=== PATIENT | female | born 1995 | race Caucasian/White ===

== ENCOUNTER 2024-08-29 15:41 | Emergency (ER) | payer OTHER ==
[2024-08-29 16:09] VITALS: BP 159/105; PULSE 105; RESP 24; TEMP 98; O2SAT 100
--- NOTE | 2024-08-29 16:44 | ERPHSYRPT ---
- History of Present Illness Source: patient Exam Limitations: no limitations Patient Subjective Stated Complaint: C/O intermittent "fluttering" in her chest for the past few weeks. Denies pain or SOB. Triage Nursing Assessment: Patient ambulated back to ER. She is alert and oriented. NO SOB. SKin tone normal. Physician History: Patient is having muscle twitches in her rightChest. Its up around her muscles in her pectoralis muscle. She says she feels a little flutter there it randomly occurs just last a few minutes. She does not have any palpitations or syncope or anything she was worried that it was heart. Its clearly coming from the musculature. I explained to her what was going on she does not have any cardiac history or anything. She does have a panic issue and she says whenever she feels this twitching and fasciculations she gets anxious. It is not cardiac. Timing/Duration: week(s) (2) Associated Symptoms: denies symptoms Allergies/Adverse Reactions: Penicillins Adverse Reaction (Verified 08/29/24 16:01) Hives Home Medications: Metformin HCl 750 mg PO BID 08/29/24 [History] Hx Tetanus, Diphtheria Vaccination/Date Given: Yes Hx Influenza Vaccination/Date Given: No Hx Pneumococcal Vaccination/Date Given: No Immunizations Up to Date: Yes Travel Risk - International Travel Have you traveled outside of the country in past 3 weeks: No - Emerging Infectious Disease Are you exhibiting symptoms associated with any current EIDs: No - Review of Systems Constitutional: No Symptoms Eyes: No Symptoms Ears, Nose, & Throat: No Symptoms Respiratory: No Symptoms Cardiac: No Symptoms Skin: No Symptoms All Other Systems: Reviewed and Negative - Past Medical History Pertinent Past Medical History: Yes Other Medical History: PCOS - Past Surgical History Past Surgical History: No - Female History Hx Last Menstrual Period: irregular; June Hx Now: No - Social History Smoking Status: Never smoker Exposure to second hand smoke: No Drug Use: none - Social Determinants of Health Will the patient participate in the screening: Declined to provide - Nursing Vital Signs Nursing Vital Signs: Initial Vital Signs Temperature 98 F 08/29/24 16:03 Pulse Rate 105 H 08/29/24 16:03 Respiratory Rate 24 08/29/24 16:03 Blood Pressure 159/105 08/29/24 16:03 O2 Sat by Pulse Oximetry 100 08/29/24 16:03 Pain Scale Pain Intensity 0 - Physical Exam General Appearance: no apparent distress Respiratory Exam: normal breath sounds, No chest tenderness Cardiovascular Exam: regular rate/rhythm SpO2: 100 - Course Nursing assessment & vital signs reviewed: Yes Ordered Tests: Active Orders 24 hr Category Date Time Status EKG-ER Only STAT Care 08/29/24 16:08 Active CHEST 1 VIEW (PORTABLE) Stat Exams 08/29/24 16:08 Taken BMP Stat Lab 08/29/24 16:30 Received MAG [MAGNESIUM] Stat Lab 08/29/24 16:30 Received - Progress Progress: unchanged Progress Note: Patient was stable throughout stay. She did not require workup. She is just having muscle twitches. It is nothing in her cardiovascular system. I wanted discharged her to home. 08/29/24 16:43 - Departure Departure Disposition: Home Clinical Impression: Muscle twitching Condition: Stable Critical Care Time: No Referrals: NILSON SOLANO TORTILLA MAKER [Primary Care Provider, UNKNOWN] - Follow up/PCP as directe d Additional Instructions: Return as needed Follow-up with primary care doctor as needed.
--- NOTE | 2024-08-29 16:51 | XRAY ---
Indication: Palpitations. Comparison: March 06, 2016 Portable chest again demonstrates normal heart, lungs, and bony thorax.
[2024-08-29 17:01] LABS: Calcium 9.8 mg/dL (8.4-10.2); Creatinine 1 0.97 mg/dL (0.52-1.04); EST GLOMERULAR FILTRATION RATE 82.1 ML/MIN; MAGNESIUM 1.9 mg/dL (1.6-2.3); Potassium 4.2 mmol/L (3.5-5.1)
== END 2024-08-29 16:52 | disposition home or self-care (01) ==
LOC: ED 15:41
DX: R25.3 Fasciculation (principal); Z79.899 Other long term (current) drug therapy
CPT/HCPCS: 36415; 71045; 80048; 83735; 93005; 99283; 99285